=== PATIENT | male | born 1970 | race Caucasian/White ===

== ENCOUNTER 2019-08-18 12:31 | Emergency (ER) | payer SELFPAY ==
[2019-08-18 12:42] VITALS: BP 140/80; PULSE 88; RESP 15; TEMP 36.5; O2SAT 97
--- NOTE | 2019-08-18 13:00 | DI.CT_ITS ---
EXAM: CT LUMBAR SPINE WO CLINICAL HISTORY: low pain after forceful movement COMPARISON: No exams were available for comparison FINDINGS: CT examination of the lumbosacral spine was performed utilizing multi slice acquisition and multiplan ar reconstruction. Note is made of an apparent left renal cyst measuring up to about 9 cm in diamete r. Abdominal aorta is of normal diameter. No gross retroperitoneal adenopathy. No gross pelvic mas s or adenopathy. Visualized pelvis is unremarkable. There are mild hypertrophic facet degenerative changes at L4-5 an d L5-S1. Intervertebral disc spaces are fairly well maintained. Minimal endplate hypertrophic soria es noted throughout the lumbar region as well. No gross bony central canal spinal stenosis or neural foraminal stenosis. Mild disc bulge at L4-5 and L5-S1 without gross focal disc herniation. Minimal left convex lumbar scoliosis. SI joints well maintained. IMPRESSION: No evidence of acute process. Degenerative changes as described.
--- NOTE | 2019-08-18 13:01 | ED.GENADUL_ITS ---
Discharge Plan Disposition Patient Disposition: HOME Condition: Improving Discharge Details Chief Complaint: Nk/Back Pain Clinical Impression: Bulging lumbar disc Primary Care Provider: Vanessa Jiménez V ED Provider: Cortez Ceron Home Meds and New Rx's Prescriptions: New prednisone 50 mg tablet 50 mg PO DAILY 6 Days Qty: 6 RF: 0 hydrocodone-acetaminophen 5-325 mg tablet 1 tab PO BID PRN (Reason: Severe back pain) Qty: 7 RF: 0 ibuprofen 800 mg tablet 800 mg PO Q8H PRNQty: 14 RF: 0 Discharge Instructions Instructions: Lumbar Disc Herniation (ED) Additional Instructions: Please remove Lidoderm patch in 12 hours time. Additional patches are available [id number]. Follow-up with physical therapy as prescribed. For pain, please use ibuprofen 800 mg every 8 hours (take with food). May use the prescribed hydrocodone as needed for breakthrough pain. This medication contains Tylenol and additional Tylenol should not be used concurrently. Prednisone as prescribed. We will refer you to follow-up and establish primary care. Return to the ER if you develop increasing pain, weakness or numbness of the legs, incontinence, or any other acute concern Stand Alone Forms: Physical Therapy Referral Medical Decision Making 48-year-old male who was lifting a heavy plow up bent over yesterday and felt a pulling sensation in his low back. Since that time he has had significant pain that at times feels like electricity down his legs. No loss of bowel or bladder continence. No motor deficits and no paresthesias. His exam is reassuring. Concerned that he may have lumbosacral radiculopathy, must rule out sclerotic lesion or bony abnormality patient referred for noncontrast CT scan of the lumbar spine. Patient given IM ketorolac. Imaging studies: There is no evidence of malalignment or acute fracture. There is a broad-based disc bulge at L4-5 and L5-S1. See formal report. He does not have neuro or motor deficits. Will place on a prednisone burst, refer to physical therapy for follow-up treatment, he is given a Lidoderm patch and was consented for use of opiates for breakthrough pain. HPI General Mode of arrival: ambulatory . Date/Time Provider Initiated Documentation: 08/18/19 12:33 . Limitations to Documentation: no limitations . Information obtained by: patient . History of Present Illness 48 year old M presents to the emergency department with the chief complaint of Low back pain since yesterday after forceful pulling motion, described as moderate, Quality is described as dull, and is localized to the back and lower extremity. Patient reports no radiation. Patient started experiencing this hour(s) and it has been constant. Rest improves symptom(s), Movement worsens symptoms . Patient notes other (No change to bowel or bladder habits. No numbness or weakness of the lower extremity. No fall or other injury.); denies syncope and weakness. Related Data Home Medications Medication Instructions Recorded Confirmed hydrocodone-acetaminophen 1 tab PO BID PRN #7 tab 08/18/19 ibuprofen 800 mg PO Q8H PRN #14 tab 08/18/19 prednisone 50 mg PO DAILY 6 Days #6 tab 08/18/19 Previous Rx's Medication Instructions Recorded hydrocodone-acetaminophen 1 tab PO BID PRN #7 tab 08/18/19 ibuprofen 800 mg PO Q8H PRN #14 tab 08/18/19 prednisone 50 mg PO DAILY 6 Days #6 tab 08/18/19 Allergies Allergy/AdvReac Type Severity Reaction Status Date / Time No Known Allergies Allergy Unverified 08/18/19 12:46 General Stated Complaint: Nk/Back Pain JINNY: 4 Review of Systems Narrative: No bowel or bladder incontinence. See HPI. 6 systems reviewed and otherwise negative FOR[facility], [facility] Social History Smoking/Tobacco Use Status: Current every day Alcohol Intake: current Alcohol Intake frequency: a few times a week Drug use: Never Substance use type: does not use Do you feel safe at home: Yes Do you feel safe in your relationship?: Yes Exam Narrative Exam Narrative: GEN: awake, alert, oriented 3. Pleasant, well groomed, interactive. HEAD: Normocephalic, atraumatic ENT: Mucous membranes moist, oropharynx unremarkable, External ear exam unremarkable EYES: PERRL, EOMI NECK: Full ROM, no LEXUS, no menigismus CHEST/RESP: Nontender, clear to auscultation bilateral, no wheeze/rhonchi/rales CARDIOVASCULAR: RRR, no murmur, rub jade. 2+ Rad pulse bilateral Back: Midline lower lumbar tenderness to palpation without step-off or deformity. No SI or sciatic notch tenderness. EXT: Full ROM, no edema, no rash. Motor is 5 out of 5 at bilateral hip and knee and ankle. Reflexes 1-2+ and symmetric bilateral patella. Sensation intact throughout including saddle distribution. Neuro: Grossly normal neurologic exam, conversant, interactive. Psych: Speech fluent, thoughts congruent, affect normal Course Vital Signs Vital signs: Vital Signs Temperature 36.5 C 08/18/19 12:42 Pulse 88 08/18/19 12:42 Respiratory Rate 15 08/18/19 12:42 Blood Pressure 140/80 08/18/19 12:42 Pulse Oximetry 97 08/18/19 12:42 Temperature 36.5 C 08/18/19 12:42 Temperature Source Tympanic 08/18/19 12:42 Pulse 88 08/18/19 12:42 Respiratory Rate 15 08/18/19 12:42 Respiratory Effort Non-Labored 08/18/19 12:45 Blood Pressure 140/80 08/18/19 12:42 Pulse Oximetry 97 08/18/19 12:42 Oxygen Delivery Method Room Air 08/18/19 12:42 Oxygen Flow Rate 0 08/18/19 12:42 Pain Level 10 08/18/19 12:47
[2019-08-18] MEDS: Ketorolac 30 MG/ML VIAL IVP (13:06)
--- NOTE | 2019-08-18 14:12 | DI.VRAD_ITS ---
PROCEDURE INFORMATION: Exam: CT Lumbar Spine Without Contrast Exam date and time: 08/18/2019 1:01 PM Age: 48 years old Clinical indication: Low back pain; Patient HX: Pulling injury TECHNIQUE: Imaging protocol: Computed tomography images of the lumbar spine without contrast. COMPARISON: No relevant prior studies available. FINDINGS: Vertebrae: There is no evidence of acute fracture.There is no evidence of malalignment or dislocation. Discs/Spinal canal/Neural foramina: Mild broad-based disc bulge at L4/L5 and L5/S1 may represent degenerative disc disease. Kidneys and ureters: Large left renal cyst Stomach and bowel: A few loops of dilated small bowel may represent obstruction or ileus. Soft tissues: Unremarkable. IMPRESSION: 1. There is no evidence of acute fracture.There is no evidence of malalignment or dislocation. 2. A few loops of dilated small bowel may represent obstruction or ileus. 3. Mild broad-based disc bulge at L4/L5 and L5/S1 may represent degenerative disc disease. Recommend MRI if clinically indicated Dictated and Authenticated by: Huber Gee MD. Ordering:LUISF ERNANDO Toro MD
[2019-08-18] MEDS: predniSONE 20 MG TAB 60 MG PO (14:34)
[2019-08-18] MEDS: HYDROcodone 5/Acetaminophen 325 TAB PO (14:34)
[2019-08-18] MEDS: Lidocaine 5% Patch 1 PATCH TP (14:35)
[2019-08-18 14:51] VITALS: BP 132/84; PULSE 80; RESP 15; O2SAT 97
== END 2019-08-18 14:49 | disposition home or self-care (01) ==
PROVIDERS: Emergency Provider Emergency Medicine; PCP Family Medicine
DX: M51.06 Intervertebral disc disorders with myelopathy, lumbar region (principal); X50.0XXA Overexertion from strenuous movement or load, initial encounter
CPT/HCPCS: 96374; 99284; 72131; J1885; J7512